=== PATIENT | female | born 1995 | race African-American/Black ===

== ENCOUNTER 2019-12-15 12:26 | Emergency (ER) | payer OTHER ==
--- NOTE | 2019-12-15 12:30 | PDOC ---
Rapid Medical Evaluation Time Seen by Provider: 12/15/19 12:28 Medical Evaluation: 12/15/19 12:28 Pt presents for COVID testing as she is going to [place] Exam: aaox3, NAD Orders: COVID Pt to proceed to the ER for further evaluation Discharge Disposition - Diagnosis Counseled about COVID-19 virus infection - Referrals - Patient Instructions - Post Discharge Activity
[2019-12-15 12:33] VITALS: BP 119/79; PULSE 84; TEMP 98.7; BMI 24.6
--- NOTE | 2019-12-15 12:56 | PDOC ---
History of Present Illness - General Stated Complaint: HEADACHE Time Seen by Provider: 12/15/19 12:28 History Source: Patient - History of Present Illness Timing/Duration: other Associated Symptoms: reports: cough. denies: chest pain, fever/chills Past History - Medical History Allergies/Adverse Reactions: Allergies Allergy/AdvReac Type Severity Reaction Status Date / Time clindamycin Allergy Verified 12/15/19 12:33 - Psycho-Social/Smoking History Smoking History: Never smoked Information on smoking cessation initiated: No - Substance Abuse Hx (Audit-C & DAST Scrn) How often the patient has a drink containing alcohol: Never Score: In Men: 4 or > Positive; In Women: 3 or > Positive: 0 Screen Result (Pos requires Nsg. Audit-10AR): Negative In the last yr the pt used illegal drug/Rx for NonMed reason: No Score: Yes response is considered Positive: 0 Screen Result (Positive result requires Nsg. DAST-10): Negative Review of Systems - Review of Systems Constitutional: No: Chills, Fever HEENTM: No: Ear Pain, Throat Pain Respiratory: Yes: Cough. No: Shortness of Breath, Wheezing Cardiac (ROS): No: Chest Pain *Physical Exam - Vital Signs Last Vital Signs Temp Pulse Resp BP Pulse Ox 98.7 F 84 17 119/79 100 12/15/19 12:31 12/15/19 12:31 12/15/19 12:31 12/15/19 12:31 12/15/19 12:31 - Physical Exam General Appearance: Yes: Appropriately Dressed. No: Apparent Distress HEENT: positive: Normal ENT Inspection, Normal Voice, TMs Normal, Pharynx Normal. negative: Scleral Icterus (R), Scleral Icterus (L) Neck: positive: Supple. negative: Lymphadenopathy (R), Lymphadenopathy (L) Respiratory/Chest: positive: Lungs Clear, Normal Breath Sounds. negative: Respiratory Distress Integumentary: positive: Dry, Warm Neurologic: positive: Fully Oriented, Alert, Normal Mood/Affect Medical Decision Making - Medical Decision Making 12/15/19 12:50 24 yo F, asthma, here w/ cough x weeks w/ sneezing. No sob, CP, wheezing, loss of taste/smell, f/c. Here to get covid testing. Pt well michelle and stable w/ unremarkable exam. Covid tests sent. Dc w/ symptomatic tx Discharge - Discharge Information Problems reviewed: Yes Clinical Impression/Diagnosis: Counseled about COVID-19 virus infection Condition: Good Disposition: HOME - Follow up/Referral - Patient Discharge Instructions Patient Printed Discharge Instructions: [facility]-Coronavirus Instructions Additional Instructions: We will call you with your covid results if they are positive - Post Discharge Activity
== END 2019-12-15 12:55 | disposition home or self-care (01) ==
LOC: JERFT 12:26
DX: Z11.59 Encounter for screening for other viral diseases (principal)
CPT/HCPCS: 36415; 86769; 99283-25; U0003